=== PATIENT | male | born 2000 | race Caucasian/White ===

== ENCOUNTER → 2024-02-11 08:50 | Outpatient (BNVA) | payer SELFPAY | PROVIDERS: Family Provider Pediatrics Adolescent Medicine | DX: R39.9 Unspecified symptoms and signs involving the genitourinary system (principal); R30.0 Dysuria | CPT/HCPCS: 81000; 87491; 87591 ==

== ENCOUNTER 2024-10-06 18:29 | Emergency (ER) | payer SELFPAY | END 2024-10-06 19:08 | disposition left against medical advice (07) | LOC: ER 18:36 | PROVIDERS: Emergency Provider Family Medicine | DX: Z01.89 Encounter for other specified special examinations (principal); Z53.21 Procedure and treatment not carried out due to patient leaving prior to being seen by health care provider | CPT/HCPCS: 81000; 87086; 87491; 87591 ==

== ENCOUNTER 2025-04-26 14:00 | Emergency (ER) | payer SELFPAY ==
[2025-04-26 14:18] VITALS: BP 150/88; PULSE 73; RESP 16; TEMP 37.1; O2SAT 100; BMI 20.7
[2025-04-26 14:26] LABS: Hematocrit 48.2 % (37-53); Hemoglobin 17.20 g/dL (11.27-16.99); Mean Corpuscular HGB Conc 35.7 g/dL (30-55); Mean Corpuscular Hemoglobin 29.7 pg (27-33); Mean Corpuscular Volume 83.2 fl (82-101); Nucleated Red Blood Cells % 0 %; Platelet Count 305 10^3/cmm (157-399); Red Blood Count 5.79 10^6/uL (3.85-5.65); White Blood Count 8.52 10^3/uL (3.29-11.43)
[2025-04-26 14:49] LABS: Alanine Aminotransferase 14 U/L (0-41); Albumin Level 4.6 g/dL (3.5-5.2); Alkaline Phosphatase 68 U/L (40-130); Anion Gap 14.9 (5-19); Aspartate Amino Transferase 14 U/L (0-40); Blood Urea Nitrogen 11 mg/dL (6-20); Calcium 9.2 mg/dL (8.5-10.5); Carbon Dioxide 27 mmol/L (22-29); Chloride 102 mmol/L (98-107); Globulin 2.1 g/dL (1.3-4.6); Glucose 75 mg/dL (65-115); Lipase 20 U/L (13-60); Osmolality Calculated 288 mOsm/kg (285-295); Potassium 3.9 mmol/L (3.5-5.1); Sodium 140 mmol/L (136-145); Total Protein 6.7 g/dL (6.6-8.7)
[2025-04-26 14:51] VITALS: BP 134/88; PULSE 62; O2SAT 100
[2025-04-26 14:52] VITALS: BP 134/80; PULSE 70; O2SAT 100
--- NOTE | 2025-04-26 14:54 | PC.NURSE ---
PT asked for urine sample, pt states he doesn't need to go, pt educated on ua that's ordered, pt call light within reach and pt educated to hit call button when pt can give urine sample.
[2025-04-26] MEDS: ondansetron 2 mg/ML SDV 2 mL 4 MG IVP (15:06)
--- NOTE | 2025-04-26 15:10 | W.ED.ABDPA2 ---
HPI - Abdominal Pain General: Chief Complaint: Abdominal Pain Stated Complaint: Middle ABD Pain N Dizzy Time Seen by Provider: 04/26/25 14:10 History of Present Illness: Patient is a 25-year-old male without medical history, s/p appendectomy, presents to the emergency room with abdominal, umbilicus centrally located pain that started last p.m. Nausea, no emesis, no stool change. Pain is the main issue that is circular around his umbilicus. No dysuria. He does believe less fluid intake due to pain. No radiation. Occasional drinker, defined as over a week ago had a couple beers. Worse with movement. States he feels better with rest, and holding his self still. MD elicited complaint: abdominal pain Pain Consistency: intermittent Location: Periumbilical Severity: moderate Quality: cramping, stabbing and aching Radiation: none Associated Symptoms: Reports nausea; Denies change in stool character, chills, fever(s) and vomiting Related Data Previous Rx's ?Medication ?Instructions ?Recorded doxycycline hyclate 100 mg capsule 100 mg PO BID 14 days #28 caps 10/06/24 lactulose 10 gram/15 mL oral 30 g (45 mL) PO Q2H 48 hours #473 04/26/25 solution mL Allergies Allergy/AdvReac Type Severity Reaction Status Date / Time No Known Allergies Allergy Verified 04/26/25 14:22 Review of Systems General: Reports: 10 or more systems reviewed and unremarkable except in HPI and below Const: Denies: fever(s), chills or body aches Eyes: Denies: change in vision ENMT: Denies: throat pain Card: Denies: chest pain Resp: Denies: dyspnea or productive cough GI: Reports: abdominal pain and nausea; Denies: vomiting or change in stool character : Denies: flank pain or urinary frequency Musc: Denies: neck pain or back pain Skin/Breast: Denies: rash or skin tenderness Neuro: Denies: headache(s) or numbness in extremities Psych: Denies: anxiety Will/Lymph: Denies: easy bruising PFSH ED PFSH: Social History Smoking and tobacco/nicotine status: current every day tobacco/nicotine user Physical Exam Const: COMMON NORMALS: no acute distress, average body habitus, patient oriented x3, no limitations, healthy appearing, alert and well nourished GENERAL APPEARANCE: cooperative, well kempt and well developed Eye: COMMON NORMALS: Equal, round and reactive pupils present PUPIL: Yes Equal, round and reactive pupils present Neck/C-Spine: GENERAL: Yes normal visual inspection Resp: COMMON NORMALS: clear to auscultation bilaterally EFFORT & INSPECTION: Yes able to speak in complete sentences AUSCULTATION: clear to auscultation bilaterally Cardio: COMMON NORMALS: regular rate and regular rhythm RATE: regular rate RHYTHM: regular rhythm GI: INSPECTION: Yes normal to inspection : COMMON NORMALS: Yes no CVA tenderness BLADDER/KIDNEY EXAM: Yes no CVA tenderness Back/Pelvis: COMMON NORMALS: no CVA tenderness Extremity: COMMON NORMALS: normal to inspection, full ROM and capillary refill normal Neuro: COMMON NORMALS: patient oriented x3 SENSORIUM/ORIENTATION: Yes alert Psych: APPEARANCE: Yes well kempt MOOD & AFFECT: No depressed mood Skin: HAIR: normal Course Vital Signs: Vital signs: Vital Signs Temperature 98.7 F 04/26/25 14:18 Pulse Rate 70 04/26/25 14:52 Respiratory Rate 16 04/26/25 14:18 Blood Pressure 134/80 04/26/25 14:52 Pulse Oximetry 100 04/26/25 14:52 Oxygen Delivery Me thod Room Air 04/26/25 14:52 MDM - Abdominal Pain Medical Decision Making Patient is a 25-year-old male status post appendectomy presents to the emergency room with nausea, without emesis, without stool change, with umbilicus pain. Initial blood work is essentially negative with the exception of hemoglobin that is high at 17.2. 1 L IV fluids, and Zofran were given. Will check abdominal 2 view although on exam, he did not have high pitch tinkle, and had normal bowel sounds. Suspect gastroenteritis. X-ray is pretty clear there is a moderate amount of retained stool. Patient was hydrated here with his secondary polycythemia vera and hemoglobin elevated at 17.2. On discussion with patient, he feels better after fluids. He also has a history of constipation. Medical Records I reviewed the patient's medical records. Lab Data I reviewed the patient's lab results. 04/26/25 14:18 04/26/25 14:18 Labs/Radiology: Radiology Impressions Chest/Abdomen X-ray 04/26/25 15:15 Impression: 1. Negative chest. 2. Large amount of fecal material in the colon. Laboratory Results WBC 8.52 10^3/uL (3.29-11.43) 04/26/25 14:18 RBC 5.79 10^6/uL (3.85-5.65) H 04/26/25 14:18 Hgb 17.20 g/dL (11.27-16.99) H 04/26/25 14:18 Hct 48.2 % (37-53) 04/26/25 14:18 MCV 83.2 fl (82-101) 04/26/25 14:18 MCH 29.7 pg (27-33) 04/26/25 14:18 MCHC 35.7 g/dL (30-55) 04/26/25 14:18 RDW 12.1 % (12.1-15.1) 04/26/25 14:18 Plt Count 305 10^3/cmm (157-399) 04/26/25 14:18 MPV 9.1 fL (7.4-10.4) 04/26/25 14:18 Neut % (Auto) 67.8 % 04/26/25 14:18 Lymph % (Auto) 25.8 % 04/26/25 14:18 Calhoun % (Auto) 4.7 % 04/26/25 14:18 Eos % (Auto) 1.1 % 04/26/25 14:18 Baso % (Auto) 0.2 % 04/26/25 14:18 Neut # (Auto) 5.78 10^3/uL (1.8-7.7) 04/26/25 14:18 Lymph # (Auto) 2.2 10^3/uL (0.8-4.8) 04/26/25 14:18 Calhoun # (Auto) 0.4 10^3/uL (0.2-0.9) 04/26/25 14:18 Eos # (Auto) 0.1 10^3/uL (0.0-0.8) 04/26/25 14:18 Baso # (Auto) 0.0 10^3/uL (0.0-0.1) 04/26/25 14:18 Nucleated RBC % (auto) 0 % 04/26/25 14:18 Nucleated RBCs # 0.0 /100WBC 04/26/25 14:18 Sodium 140 mmol/L (136-145) 04/26/25 14:18 Potassium 3.9 mmol/L (3.5-5.1) 04/26/25 14:18 Chloride 102 mmol/L (98-107) 04/26/25 14:18 Carbon Dioxide 27 mmol/L (22-29) 04/26/25 14:18 Anion Gap 14.9 (5-19) 04/26/25 14:18 BUN 11 mg/dL (6-20) 04/26/25 14:18 Creatinine 0.9 mg/dL (0.7-1.2) 04/26/25 14:18 GFR Calculation 102.8 mL/min (90-130) 04/26/25 14:18 Glucose 75 mg/dL (65-115) 04/26/25 14:18 Calculated Osmolality 288 mOsm/kg (285-295) 04/26/25 14:18 Calcium 9.2 mg/dL (8.5-10.5) 04/26/25 14:18 Total Bilirubin 0.5 mg/dL (0.15-1.2) 04/26/25 14:18 AST 14 U/L (0-40) 04/26/25 14:18 ALT 14 U/L (0-41) 04/26/25 14:18 Alkaline Phosphatase 68 U/L (40-130) 04/26/25 14:18 C-Reactive Protein 3.0 mg/L (0.0-4.9) 04/26/25 14:18 Total Protein 6.7 g/dL (6.6-8.7) 04/26/25 14:18 Albumin 4.6 g/dL (3.5-5.2) 04/26/25 14:18 Globulin 2.1 g/dL (1.3-4.6) 04/26/25 14:18 Lipase 20 U/L (13-60) 04/26/25 14:18 All radiology interpretation(s) finalized by discharge ED provider radiology interpretation(s): Nonspecific bowel gas pattern, moderate fecal retention on my view Discharge Plan Discharge Patient Disposition: Home Clinical Impression: Constipation Condition: Stable Prescriptions: New lactulose 10 gram/15 mL solution 30 g PO Q2H 2 Days Qty: 473 0RF Rx Instructions: until desired laxative effect No Action doxycycline hyclate 100 mg capsule 100 mg PO BID 14 Days Qty: 28 0RF Discharge Orders: Discharge ED (Routine); Ordered 04/26/25 Ordered By: Herminia Garza Discharge Diet: Clear Liquid Discharge Activity: Resume usual activity Patient Instructions: Clear Liquid Diet (ED), Abdominal Pain (ED), Patient Portal & Jeff Instructions Activity Restrictions/Additional Instructions: - Clear liquid diet only until stools x 6 - Increase your fluid intake. Any noncaffeinated beverages on the clear liquid diet. - After stools x 6, you may increase to soup/full liquid diet. - Zofran that you received here, can worsen your constipation. We gave you this for nausea. You also received 1 L IV fluids. If you have nausea again, take liquid Benadryl, 5 mL. - I would recommend a daily probiotic to help you with your constipation issue naturally. - At the pharmacy: Lactulose. Take every 2 hours until you start having multiple stools. Return to ED with worsening pain, nausea, vomiting, fever greater than 100.4 ?F Thank you for choosing [facility] for your healthcare needs today. You have been screened and evaluated and felt safe for discharge. Health conditions do change or evolve sometimes and as such it is important that you follow up with your Primary Doctor to be re checked, 3-5 days is a general good time frame for follow up. You are always welcome to return to the ED for re assessment if your symptoms are worsening or you have new concerns Stand Alone Forms: Work/School Release Print Language: Honduran Coding Level of Care Code ED [employer] Install[employer] Helper for Emelyn Ross
--- NOTE | 2025-04-26 15:15 | XR_ITS ---
WS: [id number] Acute abdomen series, AP portable chest, AP portable supine and upright abdomen, portable AP upright chest, 04/26/2025 Clinical Data: abdominal pain Comparison: None. Findings: In the chest there are no nodules, masses or effusions. The heart is normal. The pulmonary vascularity is not increased. No free air is seen beneath the diaphragms. No abnormal intra-abdominal masses or calcifications are seen. There is a large amount of fecal material throughout the colon. XR/XR acute abdomen series 94744 Impression: 1. Negative chest. 2. Large amount of fecal material in the colon.
[2025-04-26 15:52] VITALS: BP 129/97; PULSE 83; O2SAT 99
== END 2025-04-26 15:55 | disposition home or self-care (01) ==
PROVIDERS: Emergency Provider Physician Assistant
DX: K59.00 Constipation, unspecified (principal); Z72.0 Tobacco use; Z98.890 Other specified postprocedural states
CPT/HCPCS: 36415; 74022; 80053; 83690; 85025; 86140; 96361; 96374; 99284; J2405; J7120